=== PATIENT | female | born 1985 | race Caucasian/White ===

== ENCOUNTER 2017-10-24 15:21 | Emergency (ER) | payer MEDICAID ==
[~2017-10-24] VITALS: Ht 149.9 cm; Wt 59.6 kg
[2017-10-24 15:25] VITALS: BP 125/82; Ht 149.9 cm; Wt 59.6 kg
== END 2017-10-24 16:00 | disposition home or self-care (01) ==
LOC: ED 15:21
DX: J30.9 Allergic rhinitis, unspecified (principal)

== ENCOUNTER 2018-08-15 16:43 | Emergency (ER) | payer MEDICAID ==
[~2018-08-15] VITALS: Ht 152.4 cm; Wt 62.6 kg
[2018-08-15 16:55] VITALS: Ht 152.4 cm; Wt 62.6 kg
[2018-08-15 18:13] LABS: BASOPHIL % 0.4 % (0-2); PLATELET COUNT 305 x10^3mcL (130-400); RED CELL DISTRIBUTION WIDTH 13.9 % (11.5-14.5)
[2018-08-15 19:29] VITALS: BP 112/79
== END 2018-08-15 19:29 | disposition home or self-care (01) ==
LOC: ED 16:43
PROVIDERS: Emergency Medicine
DX: O20.0 Threatened abortion (principal)
CPT/HCPCS: 36415